=== PATIENT | female | born 1960 | race Caucasian/White ===

== ENCOUNTER 2016-10-12 11:39 | Emergency (ER) | payer BC ==
[~2016-10-12] VITALS: Ht 162.6 cm; Wt 77.1 kg
== END 2016-10-12 13:54 | disposition home or self-care (01) ==
LOC: SED 11:39
DX: T18.9XXA Foreign body of alimentary tract, part unspecified, initial encounter (principal); F17.200 Nicotine dependence, unspecified, uncomplicated; Z88.8 Allergy status to other drugs, medicaments and biological substances
CPT/HCPCS: 99283